=== PATIENT | male | born 1980 | race African-American/Black ===

== ENCOUNTER 2016-07-26 12:40 | Emergency (ER) | payer SELFPAY ==
--- NOTE | 2016-07-26 14:49 | ER Document Report ---
ED Medical Screen (RME) - General Chief Complaint: Chest Pain Stated Complaint: CHEST PAIN Time Seen by Provider: 07/26/16 14:36 Notes: Patient says has been experiencing anterior chest pain for a couple of weeks. He says the pain actually seems to start in the epigastric region and come upward and then to the right side of his chest, not the left. Originally, it would come and go, but now it has gotten to be almost constant. Not injured himself in any way. Has not fallen. Has not done any excessive heavy lifting or any injury. Denies nausea or vomiting or diarrhea, but says he had some blood in his stool yesterday and again today. Denies any fever. No URI symptoms or cough or cold or chest congestion or shortness of breath or difficulty breathing. History of hypertension, but never on medicines. Smokes. Drinks alcohol. TRAVEL OUTSIDE OF THE [place] IN LAST 30 DAYS: No - Related Data Allergies/Adverse Reactions: iodine [Iodine] Allergy (Intermediate, Verified 07/26/16 13:13) Hives Past Medical History - Past Medical History Cardiac Medical History: Reports: Hx Hypertension Renal/ Medical History: Denies: Hx Peritoneal Dialysis GI Medical History: Reports: Hx Gastroesophageal Reflux Disease Past Surgical History: Reports: Hx Oral Surgery - Immunizations Immunizations up to date: Yes Hx Diphtheria, Pertussis, Tetanus Vaccination: Yes Physical Exam - Vital signs Vitals: Temp Pulse Resp BP Pulse Ox 98.1 F 89 20 162/109 H 98 07/26/16 13:13 07/26/16 13:13 07/26/16 13:13 07/26/16 13:13 07/26/16 13:13 Course - Vital Signs Vital signs: Temp Pulse Resp BP Pulse Ox 98.1 F 90 20 162/109 H 98 07/26/16 13:15 07/26/16 13:15 07/26/16 13:15 07/26/16 13:15 07/26/16 13:15
[2016-07-26 15:18] LABS: ABSOLUTE BASOPHILS # (AUTO) 0.1 10^3/uL (0.0-0.2); ABSOLUTE EOSINOPHILS # (AUTO) 0.2 10^3/uL (0.0-0.6); ABSOLUTE LYMPHOCYTES (AUTO) 4.3 10^3/uL (0.5-4.7); ABSOLUTE MONOCYTES (AUTO) 0.7 10^3/uL (0.1-1.4); BASOPHILS % (AUTO) 1.3 % (0-2); EOSINOPHILS % (AUTO) 2.2 % (0-6); HEMATOCRIT 47.2 % (37.9-51.0); HEMOGLOBIN 15.6 g/dL (13.5-17.0); HGB HCT DIFFERENCE -0.4; LYMPHOCYTES % (AUTO) 37.6 % (13-45); MEAN CORPUSCULAR HEMOGLOBIN 29.6 pg (27.0-33.4); MEAN CORPUSCULAR HGB CONC 33.1 g/dL (32.0-36.0); MEAN CORPUSCULAR VOLUME 89 fl (80-97); MONOCYTES % (AUTO) 6.3 % (3-13); RED BLOOD COUNT 5.28 10^6/uL (4.35-5.55); RED CELL DISTRIBUTION WIDTH 13.7 % (11.5-14.0); SEGMENTED NEUTROPHILS % (AUTO) 52.6 % (42-78); WHITE BLOOD COUNT 11.4 10^3/uL (4.0-10.5)
[2016-07-26 15:23] LABS: APPEARANCE,URINE SLIGHTLY-CLOUDY; BILIRUBIN,URINE NEGATIVE (NEGATIVE); GLUCOSE, URINE NEGATIVE (NEGATIVE); KETONES,URINE NEGATIVE (NEGATIVE); LEUKOCYTE ESTERASE,URINE TRACE (NEGATIVE); NITRITE,URINE NEGATIVE (NEGATIVE); PROTEIN,URINE NEGATIVE (NEGATIVE); URINE SPECIFIC GRAVITY 1.027
[2016-07-26 15:37] LABS: ALANINE AMINOTRANSFERASE 71 U/L (21-72); ALBUMIN 4.4 g/dL (3.5-5.0); ALKALINE PHOSPHATASE 82 U/L (38-126); ANION GAP 10 (5-19); ASPARTATE AMINO TRANSFERASE 36 U/L (17-59); BILIRUBIN,DIRECT 0.4 mg/dL (0.0-0.4); BILIRUBIN,TOTAL 0.6 mg/dL (0.2-1.3); BLOOD UREA NITROGEN 11 mg/dL (7-20); CALCIUM 9.7 mg/dL (8.4-10.2); CARBON DIOXIDE 28 mmol/L (22-30); CHLORIDE 104 mmol/L (98-107); GLUCOSE 114 mg/dL (75-110); LIPASE 105.3 U/L (23-300); POTASSIUM 4.5 mmol/L (3.6-5.0); SODIUM 142.4 mmol/L (137-145); TOTAL PROTEIN 7.6 g/dL (6.3-8.2)
[2016-07-26 15:48] LABS: CREATINE KINASE MB 0.26 ng/mL (<4.55)
[2016-07-26 15:55] LABS: TROPONIN I < 0.012 ng/mL
[2016-07-26] MEDS ORDERED: ASPIRIN 81 MG TABLET, CHEWABLE PO ONE (16:05)
--- NOTE | 2016-07-26 16:55 | ER Document Report ---
ED General - General Chief Complaint: Chest Pain Stated Complaint: CHEST PAIN Time Seen by Provider: 07/26/16 14:36 Mode of Arrival: Ambulatory Information source: Patient Notes: Patient presents emergency department with reports of epigastric pain. Patient reports he had some epigastric pain that radiated to the right side approximately 3 weeks ago. He reports it went away and then came back radiating to the left side. Reports history of reflux. Started after he had beers with his friends and some fatty food. The patient did take camilo seltzer and had some relief of symptoms but it came right back. Patient denies chest pain, shortness of breath, fever, vomiting diarrhea. He reports he did feel a bit nauseated when he had the pain. Patient has history of high blood pressure untreated. Also smokes and is overweight. Reports family history of CAD. Denies trauma. TRAVEL OUTSIDE OF THE [place] IN LAST 30 DAYS: No - HPI Onset: Other - 3 weeks Quality of pain: Burning Pain Level: 4 Associated symptoms: Nausea Exacerbated by: Denies Relieved by: Denies Similar symptoms previously: No Recently seen / treated by doctor: No - Related Data Allergies/Adverse Reactions: iodine [Iodine] Allergy (Intermediate, Verified 07/26/16 13:13) Hives Past Medical History - General Information source: Patient - Social History Smoking Status: Current Every Day Smoker Cigarette use (# per day): Yes Chew tobacco use (# tins/day): No Frequency of alcohol use: Occasional Drug Abuse: None Occupation: none Lives with: Family Family History: Reviewed & Not Pertinent Patient has suicidal ideation: No Patient has homicidal ideation: No - Past Medical History Cardiac Medical History: Reports: Hx Hypertension Renal/ Medical History: Denies: Hx Peritoneal Dialysis GI Medical History: Reports: Hx Gastroesophageal Reflux Disease Past Surgical History: Reports: Hx Oral Surgery - Immunizations Immunizations up to date: Yes Hx Diphtheria, Pertussis, Tetanus Vaccination: Yes Review of Systems - Review of Systems Notes: Review HPI for review of systems., All other systems negative Physical Exam - Vital signs Vitals: Temp Pulse Resp BP Pulse Ox 98.1 F 89 20 162/109 H 98 07/26/16 13:13 07/26/16 13:13 07/26/16 13:13 07/26/16 13:13 07/26/16 13:13 - Notes Notes: PHYSICAL EXAMINATION: GENERAL: Well-appearing and in no acute distress laughs easily HEAD: Atraumatic, normocephalic. EYES: Pupils equal round and reactive to light, extraocular movements intact, sclera anicteric, conjunctiva are normal. ENT: nares patent, oropharynx clear without exudates. Moist mucous membranes. NECK: Normal range of motion, supple without lymphadenopathy LUNGS: CTAB and equal. No wheezes rales or rhonchi. HEART: Regular rate and rhythm without murmurs ABDOMEN: Soft, denies abdominal pain, denies epigastric tenderness. No guarding , no rebound reports pain is deep in his abdomen EXTREMITIES: Normal range of motion, no pitting edema. No cyanosis. NEUROLOGICAL: Cranial nerves grossly intact. Normal sensory/motor exams. PSYCH: Normal mood, normal affect. SKIN: Warm, Dry, normal turgor, no rashes or lesions noted Course - Re-evaluation Re-evalutation: 07/26/16 18:[address] ramsey per apc guidelines who advised second set of CE. 07/26/16 19:35 Denies pain. Reports he has not had any pain since 1400 07/26/16 19:56 SECOND SET OF Enzymes negative. Patient reports he never felt like he was having chest pain, more epigastric pain with history of GERD. It was updated on all results. Patient was instructed on GERD, Foods to avoid, dangers of high blood pressure, on modifying his diet QUIT smoking., monitor his blood pressure exercise. He reports he will be following up with the [facility]. - Vital Signs Vital signs: Temp Pulse Resp BP Pulse Ox 98.1 F 90 12 131/91 H 100 07/26/16 13:15 07/26/16 13:15 07/26/16 18:01 07/26/16 18:01 07/26/16 18:01 - Laboratory Result Diagrams: 07/26/16 14:55 07/26/16 14:55 Laboratory results interpreted by me: 07/26/16 07/26/16 07/26/16 14:55 14:55 14:55 WBC 11.4 H Glucose 114 H Urine Urobilinogen 2.0 H Ur Leukocyte Esterase TRACE H - Diagnostic Test Radiology reviewed: Image reviewed, Reports reviewed - neg - EKG Interpretation by Me EKG shows normal: Sinus rhythm - ekg x 2 Discharge - Discharge Clinical Impression: Epigastric abdominal pain, Elevated blood pressure reading Condition: Stable Disposition: HOME, SELF-CARE Instructions: Evaluation of Upper Abdominal Pain ([facility]), High Blood Pressure ( [facility]), Stop Smoking ([facility]), [facility] Additional Instructions: *You have been evaluated for epigastric abdominal pain *Quit smoking, monitor your blood pressure *Avoid greasy, spicy foods *Follow up with a primary care provider or the [facility] within one week *Return to ED for worsening condition, changes, needs, concerns, chest pain, SOB * Forms: Elevated Blood Pressure, Smoking Cessation Education
[2016-07-26] MEDS ORDERED: LIDOCAINE 2% VISCOUS SOLN 20 ML UDCUP PO ONE (17:26)
[2016-07-26] MEDS ORDERED: METOCLOPRAMIDE HCL ORAL SOLN 10 MG/10 ML UDCUP PO ONE (17:26)
[2016-07-26] MEDS ORDERED: MAG HYDROX/AL HYDROX/SIMETH SUSP 30 ML UDCUP PO ONE (17:26)
[2016-07-26 20:28] VITALS: BP 141/84
--- NOTE | 2016-07-27 07:11 | EKG REPORT ---
SEVERITY:- ABNORMAL ECG - SINUS RHYTHM CONSIDER ANTEROSEPTAL INFARCT : Confirmed by: Margie Pappas MD 27-Jul-2016 07:10:28
--- NOTE | 2016-07-27 07:11 | EKG REPORT ---
SEVERITY:- ABNORMAL ECG - SINUS RHYTHM CONSIDER ANTEROSEPTAL INFARCT : Confirmed by: Margie Pappas MD 27-Jul-2016 07:10:32
== END 2016-07-26 20:15 | disposition home or self-care (01) ==
LOC: ER 12:40
DX: K21.9 Gastro-esophageal reflux disease without esophagitis (principal); R10.13 Epigastric pain; R11.0 Nausea; I10 Essential (primary) hypertension; E66.3 Overweight; Z68.42 Body mass index [BMI] 45.0-49.9, adult; F17.210 Nicotine dependence, cigarettes, uncomplicated; Z82.49 Family history of ischemic heart disease and other diseases of the circulatory system
CPT/HCPCS: 93005; 99285; 36415; 82553; 83690; 85025; 80053; 81001; 84484; 71020; 93010; J3490

== ENCOUNTER 2017-10-21 13:15 | Emergency (ER) | payer SELFPAY ==
[2017-10-21 13:24] VITALS: BP 155/84
[2017-10-21] MEDS ORDERED: KETOROLAC TROMETHAMINE 60 MG/2 ML SDV IM ONE (14:50)
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
[2017-10-21 15:47] LABS: APPEARANCE,URINE CLEAR; BILIRUBIN,URINE NEGATIVE (NEGATIVE); COLOR,URINE YELLOW; GLUCOSE, URINE 50 mg/dL (NEGATIVE); KETONES,URINE NEGATIVE (NEGATIVE); LEUKOCYTE ESTERASE,URINE NEGATIVE (NEGATIVE); NITRITE,URINE NEGATIVE (NEGATIVE); PROTEIN,URINE NEGATIVE (NEGATIVE)
--- NOTE | 2017-10-21 16:48 | RADIOLOGY REPORT (SQ) ---
EXAM DESCRIPTION: U/S SCROTUM W/DOPPLER COMPLETED DATE/TIME: 10/21/2017 4:35 pm REASON FOR STUDY: r testicular pain COMPARISON: None. TECHNIQUE: Static and realtime giles scale imaging of the scrotum and testes. Selected color Doppler and spectral images recorded to document blood flow. LIMITATIONS: None. FINDINGS: RIGHT: TESTICLE: Normal size. Mild microlithiasis. Normal blood flow. No mass. EPIDIDYMIS: Normal. HYDROCELE OR VARICOCELE: No. HERNIA OR EXTRA-TESTICULAR MASS: No. OTHER: No other significant finding. LEFT: TESTICLE: Normal size. Mild microlithiasis. Normal blood flow. No mass. EPIDIDYMIS: Normal. HYDROCELE OR VARICOCELE: No. HERNIA OR EXTRA-TESTICULAR MASS: No. OTHER: No other significant finding. IMPRESSION: Mild microlithiasis. No evidence of testicular mass or torsion. TECHNICAL DOCUMENTATION: JOB ID: [id number] [employer]- All Rights Reserved Reading location - IP/workstation name: [email or web address]
[2017-10-21 17:15] LABS: CHLAM PCR NOT DETECTED (NOT DETECT); GON PCR NOT DETECTED (NOT DETECT)
== END 2017-10-21 17:37 | disposition home or self-care (01) ==
LOC: ER 13:15
DX: M54.40 Lumbago with sciatica, unspecified side (principal); N50.82 Scrotal pain; N50.811 Right testicular pain; I10 Essential (primary) hypertension; F17.200 Nicotine dependence, unspecified, uncomplicated
CPT/HCPCS: 99284; 96372; 81001; 87491; 87591; 76870; 93976; J1885

== ENCOUNTER 2018-04-05 14:17 | Emergency (ER) | payer SELFPAY ==
[2018-04-05] MEDS ORDERED: CYCLOBENZAPRINE HCL 10 MG TABLET PO ONE (15:49)
[2018-04-05] MEDS ORDERED: HYDROCODONE/ACETAMINOPHEN 5-325 MG TABLET PO ONE (15:49)
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
[2018-04-05 16:20] VITALS: BP 136/89
== END 2018-04-05 16:20 | disposition home or self-care (01) ==
LOC: ER 14:17
DX: M54.42 Lumbago with sciatica, left side (principal); I10 Essential (primary) hypertension; F17.200 Nicotine dependence, unspecified, uncomplicated
CPT/HCPCS: 99283

== ENCOUNTER 2018-07-19 12:50 | Emergency (ER) | payer SELFPAY ==
--- NOTE | 2018-07-19 13:10 | ER Document Report ---
ED Medical Screen (RME) - General Chief Complaint: Shortness Of Breath Stated Complaint: SHORTNESS OF BREATH Time Seen by Provider: 07/19/18 13:05 Mode of Arrival: Ambulatory Information source: Patient Notes: Patient is a 38-year-old male presenting to the emergency department with cough, congestion and shortness of breath. Patient reports initially he just had a cough and congestion but now he has been having fevers and having increased pain with deep breaths. Patient denies any history of pneumonia. Exam: Lung sounds clear and equal bilaterally I have greeted and performed a rapid initial assessment of this patient. A comprehensive ED assessment and evaluation of the patient, analysis of test results and completion of the medical decision making process will be conducted by additional ED providers. Dictation of this chart was performed using voice recognition software; therefore, there may be some unintended grammatical errors. TRAVEL OUTSIDE OF THE [place] IN LAST 30 DAYS: No - Related Data Allergies/Adverse Reactions: iodine [Iodine] Allergy (Intermediate, Verified 07/26/16 13:13) Hives Past Medical History - Past Medical History Cardiac Medical History: Reports: Hx Hypertension Renal/ Medical History: Denies: Hx Peritoneal Dialysis GI Medical History: Reports: Hx Gastroesophageal Reflux Disease Past Surgical History: Reports: Hx Oral Surgery - Immunizations Immunizations up to date: Yes Hx Diphtheria, Pertussis, Tetanus Vaccination: Yes Physical Exam - Vital signs Vitals: Temp Pulse Resp BP Pulse Ox 100.0 F 115 H 18 138/81 H 97 07/19/18 12:59 07/19/18 12:59 07/19/18 12:59 07/19/18 12:59 07/19/18 12:59 Course - Vital Signs Vital signs: Temp Pulse Resp BP Pulse Ox 100.0 F 115 H 18 138/81 H 97 07/19/18 12:59 07/19/18 12:59 07/19/18 12:59 07/19/18 12:59 07/19/18 12:59
--- NOTE | 2018-07-19 13:38 | RADIOLOGY REPORT (SQ) ---
EXAM DESCRIPTION: CHEST 2 VIEWS COMPLETED DATE/TIME: 07/19/2018 1:14 pm REASON FOR STUDY: sob, cough, fever COMPARISON: 2016. TECHNIQUE: Frontal and lateral radiographic views of the chest acquired. NUMBER OF VIEWS: Two view. LIMITATIONS: None. FINDINGS: LUNGS AND PLEURA: Mild opacity in the lingula. Given the patient's clinical presentation, probably developing pneumonia. MEDIASTINUM AND HILAR STRUCTURES: No masses or contour abnormalities. HEART AND VASCULAR STRUCTURES: Heart normal size. No evidence for failure. BONES: No acute findings. HARDWARE: None in the chest. OTHER: No other significant finding. IMPRESSION: Left upper lobe pneumonia. TECHNICAL DOCUMENTATION: JOB ID: [id number] [employer]- All Rights Reserved Reading location - IP/workstation name: [email or web address]
[2018-07-19] MEDS ORDERED: CEFTRIAXONE 1 GM/D5W RTU 1 GM/50 ML RTUPB IV ONE (13:54)
[2018-07-19] MEDS ORDERED: NORMAL SALINE 1000 ML 1,000 ML IV ONE (13:54)
[2018-07-19] MEDS ORDERED: AZITHROMYCIN INJ 500 MG VIAL IV ONE (13:54)
--- NOTE | 2018-07-19 13:55 | ER Document Report ---
ED General - General Chief Complaint: Shortness Of Breath Stated Complaint: SHORTNESS OF BREATH Time Seen by Provider: 07/19/18 13:05 Primary Care Provider: [facility] [Provider Group] - Follow up in 3-5 days DIDI LOWE MD [ACTIVE STAFF] - Follow up in 3-5 days Mode of Arrival: Ambulatory Notes: Patient is a 38-year-old male that presents to the emergency department for chief complaint of cough, shortness of breath and fever. Patient states that he has been having a cough and shortness of breath since , his cough has been productive with yellow sputum, it got worse Saturday night, is been having lower rib pain associated with the cough, but no pain at rest. He has had subjective fever at home as well and chills associated with this. He does smoke, but denies history of asthma or COPD. He denies having any lightheadedness, dizziness, nausea, vomiting or abdominal pain at this time. Past Medical History: Denies chronic medical conditions Past Surgical History: Denies surgical history Social History: Admits to smoking cigarettes, denies alcohol or drug use. Family History: Reviewed and noncontributory for presenting illness Allergies: Reviewed, see documented allergy list. REVIEW OF SYSTEMS: Other than noted above, the 12 point review of systems was reviewed with the patient and were negative, all pertinent findings are included in the HPI. PHYSICAL EXAMINATION: Vital signs reviewed, nursing noted reviewed. GENERAL: Well-appearing, well-nourished and in no acute distress. HEAD: Atraumatic, normocephalic. EYES: Eyes appear normal, extraocular movements intact, sclera anicteric, conjunctiva are normal. ENT: nares patent, oropharynx clear without exudates. Moist mucous membranes. NECK: Normal range of motion, supple without lymphadenopathy LUNGS: Bilateral wheezing noted throughout all lung trejo, no acute respiratory distress. Wet cough noted on exam. HEART: Heart rate tachycardic, regular rhythm, no audible murmur. ABDOMEN: Soft, obese, nontender, normoactive bowel sounds. No rebound, guarding, or rigidity. No masses appreciated. EXTREMITIES: Nontender, good range of motion, no pitting or edema. NEUROLOGICAL: No focal neurological deficits. Moves all extremities spontaneously Motor and sensory grossly intact on exam. PSYCH: Normal mood, normal affect. SKIN: Warm, Dry, normal turgor, no rashes or lesions noted on exposed skin TRAVEL OUTSIDE OF THE [place] IN LAST 30 DAYS: No - Related Data Allergies/Adverse Reactions: iodine [Iodine] Allergy (Intermediate, Verified 07/26/16 13:13) Hives Past Medical History - General Information source: Patient - Social History Smoking Status: Never Smoker Family History: Reviewed & Not Pertinent Patient has suicidal ideation: No Patient has homicidal ideation: No - Past Medical History Cardiac Medical History: Reports: Hx Hypertension Renal/ Medical History: Denies: Hx Peritoneal Dialysis GI Medical History: Reports: Hx Gastroesophageal Reflux Disease Past Surgical History: Reports: Hx Oral Surgery - Immunizations Immunizations up to date: Yes Hx Diphtheria, Pertussis, Tetanus Vaccination: Yes Physical Exam - Vital signs Vitals: Temp Pulse Resp BP Pulse Ox 100.0 F 115 H 18 138/81 H 97 07/19/18 12:59 07/19/18 12:59 07/19/18 12:59 07/19/18 12:59 07/19/18 12:59 Course - Re-evaluation Re-evalutation: Patient seen and examined vital signs reviewed. Chest x-ray ordered as appropriate for the patient's presenting symptoms and complaint, with consideration of any critical or life threatening conditions that may be associated with their obtained history and exam as noted above. Patient was treated with IV fluids, do not breathing treatments, and given a first dose of IV Rocephin and azithromycin. Results were reviewed when available and demonstrated chest x-ray concerning for pneumonia in the left lung. The patient was re-evaluated and was stable, and improved Evaluation was most consistent with community-acquired pneumonia, bronchospasm, will discharge the patient home with prescriptions for antibiotics as well as dispensing albuterol inhaler with instructions to use 4 times daily. Results were discussed with the patient at this point, after careful cons ideration I feel that that patient can be discharged from the emergency department, the patient was educated treatments and reasons to return to the emergency department based on their presumed diagnosis as noted above, they were advised to followup with a primary care physician in 2-3 days. Patient was agreeable to plan of care. *Note is created using voice recognition software and may contain spelling, syntax or grammatical errors. Chest X-Ray 07/19/18 13:09 IMPRESSION: Left upper lobe pneumonia. - Vital Signs Vital signs: Temp Pulse Resp BP Pulse Ox 100.0 F 110 H 16 141/82 H 96 07/19/18 12:59 07/19/18 14:16 07/19/18 14:16 07/19/18 14:16 07/19/18 14:16 Discharge - Discharge Clinical Impression: Bronchospasm Community acquired pneumonia Qualifiers: Laterality: left Lung location: unspecified part of lung Qualified Code(s): J18.9 - Pneumonia, unspecified organism Condition: Stable Disposition: HOME, SELF-CARE Instructions: Pneumonia ([facility]) Additional Instructions: Please complete the entire course of antibiotics as prescribed, take both antibiotics as prescribed and finish to complete courses. Please follow-up with a primary care physician, if you do not have one, to have been listed with your discharge paperwork, please use the albuterol inhaler, 2 puffs at least 4 times daily for the next 5 days, to help with cough, and your breathing. Prescriptions: Azithromycin [Zithromax 250 mg Tablet] 250 mg PO ASDIR #6 tablet Cefdinir 300 mg PO BID #14 capsule Referrals: DIDI LOWE MD [ACTIVE STAFF] - Follow up in 3-5 days [facility] [Provider Group] - Follow up in 3-5 days
[2018-07-19] MEDS ORDERED: IPRATROPIUM/ALBUTEROL 0.5-2.5 MG/3 ML AMPUL NEB ONE (13:59)
[2018-07-19] MEDS ORDERED: ALBUTEROL SULFATE HFA (90 MCG/PUFF) 8 GM MDI (1 MDI/ER DISP) IH ONE (15:18)
[2018-07-19 16:39] VITALS: BP 141/84
== END 2018-07-19 16:39 | disposition home or self-care (01) ==
LOC: ER 12:50
DX: J18.9 Pneumonia, unspecified organism (principal); J98.01 Acute bronchospasm; R06.02 Shortness of breath; R05 Cough; R50.9 Fever, unspecified; F17.210 Nicotine dependence, cigarettes, uncomplicated; I10 Essential (primary) hypertension
CPT/HCPCS: 94640; 99283; 96365; 96367; 71046; J7030; J0456; J0696; J3490; J7620

== ENCOUNTER 2018-07-21 22:36 | Emergency (ER) | payer SELFPAY ==
[2018-07-21] MEDS ORDERED: PREDNISONE 20 MG TABLET PO ONE (22:56)
[2018-07-21] MEDS ORDERED: DOXYCYCLINE HYCLATE 100 MG TABLET PO ONE (22:57)
[2018-07-21] MEDS ORDERED: IPRATROPIUM/ALBUTEROL 0.5-2.5 MG/3 ML AMPUL NEB ONE (22:57)
--- NOTE | 2018-07-21 23:38 | RADIOLOGY REPORT (SQ) ---
EXAM DESCRIPTION: XR CHEST 2 VIEWS COMPLETED DATE/TME: 07/21/2018 22:57 EXAM DESCRIPTION: 2 views of the chest CLINICAL HISTORY: cough COMPARISON: 07/19/2018 FINDINGS: Frontal and lateral views of the chest. The cardiomediastinal silhouette has normal size and contour. No consolidation, pneumothorax, or pleural effusion. No displaced rib fractures identified. Upper abdominal soft tissues are unremarkable. IMPRESSION: 1. No acute pulmonary process identified. Improved aeration of the left upper lung from the comparison study.
[2018-07-22] MEDS ORDERED: ALBUTEROL SULFATE 0.083% NEB 2.5 MG/3 ML AMPUL NEB ONE (00:27)
[2018-07-22] MEDS ORDERED: DEXAMETHASONE SOD PHOS INJ 10 MG/1 ML VIAL IM ONE (02:04)
[2018-07-22] MEDS ORDERED: METFORMIN HCL 500 MG TABLET PO ONE (02:04)
--- NOTE | 2018-07-22 02:07 | ER Document Report ---
ED General - General Chief Complaint: Near Syncope Stated Complaint: NEAR SYNCOPE Time Seen by Provider: 07/21/18 22:49 Notes: Is having some worsening difficulty breathing wheezing and felt as if he was going to pass out. He says some this is also triggered by the fact he is under a lot of stress. He says his mother is also here in the ER and this is got him upset and stressed as well. No chest pain. No fevers. No vomiting. He was re cently seen in the ER and placed on an antibiotic because of pneumonia. Patient says he does not have the money to fill the prescription for the pneumonia. He is a smoker. TRAVEL OUTSIDE OF THE [place] IN LAST 30 DAYS: No - Related Data Allergies/Adverse Reactions: iodine [Iodine] Allergy (Intermediate, Verified 07/26/16 13:13) Hives Past Medical History - Social History Smoking Status: Current Every Day Smoker Frequency of alcohol use: Occasional Drug Abuse: None Family History: Reviewed & Not Pertinent Patient has suicidal ideation: No Patient has homicidal ideation: No - Past Medical History Cardiac Medical History: Reports: Hx Hypertension Pulmonary Medical History: Reports: Hx Pneumonia Renal/ Medical History: Denies: Hx Peritoneal Dialysis GI Medical History: Reports: Hx Gastroesophageal Reflux Disease Past Surgical History: Reports: Hx Oral Surgery - Immunizations Immunizations up to date: Yes Hx Diphtheria, Pertussis, Tetanus Vaccination: Yes Review of Systems - Review of Systems Notes: My Normal Review Basic REVIEW OF SYSTEMS: CONSTITUTIONAL : Subjective fevers EENT: Denies eye, ear, throat, or mouth pain or symptoms. Denies nasal or s inus congestion. CARDIOVASCULAR: Denies chest pain. RESPIRATORY: Cough GASTROINTESTINAL: Denies abdominal pain. Denies nausea, vomiting, or diarrhea. Denies constipation. Last BM: MUSCULOSKELETAL: Denies neck or back pain or joint pain or swelling. SKIN: Denies rash or skin lesions. NEUROLOGICAL: Denies altered mental status or loss of consciousness. ALL OTHER SYSTEMS REVIEWED AND NEGATIVE. Physical Exam - Vital signs Vitals: Temp 98.2 F 07/21/18 23:18 - Notes Notes: General Appearance: Well nourished, alert, cooperative, no acute distress, no obvious discomfort. Vitals: reviewed, See vital signs table. Head: no swelling or tenderness to the head Eyes: PERRL, EOMI, Conjuctiva clear Mouth: No decreasd moisture Throat: No tonsillar inflammation, No airway obstruction, No lymphadenopathy Lungs: Scattered rhonchi and wheezing. Heart: Normal rate, Regular rythm, No murmur, no rub Abdomen: Normal BS, soft, No rigidity, No abdominal tenderness, No guarding, no rebound Extremities: good pulses in all extremities, no swelling or tenderness in the extremities, no edema. Skin: warm, dry, appropriate color, no rash Neuro: speech clear, oriented x 3, normal affect, responds appropriately to questions. Cranial nerves II through XII are intact. Distal sensation intact. Patient moves all extremities without difficulty. Distal sensation intact. Course - Re-evaluation Re-evalutation: 07/22/18 02:10 Patient is feeling much improved after receiving the breathing treatments his lung trejo are now clear. Wheezing is gone. Chest x-ray showed no evidence of pneumonia and therefore informed him he does not have to fill the antibiotic prescription from several days ago. He has what appears to be a bronchitis. Did give him a dose of Decadron. Blood sugar is a little bit high. He supposed to see for the first time this week and goes to medical clinic. We will place him on metformin but informed him that I still to check his kidney function. Patient is ready to leave and therefore I will follow-up on the results of his chemistry panel and call him to inform him whether or not his kidney function is normal not. I informed him that his kidney function is not normal then I will make sure he does not feel that prescription for metformin and will talk about otherwise to control his blood sugar. Patient to return to ER if he has fevers, difficulty breathing, wheezing not responding to inhaler, or if he feels he is worsening in any way. Patient agrees with plan and will be discharged home. Dictation of this chart was performed using voice recognition software; the[employer], there may be some unintended grammatical errors. 07/22/18 05:30 I did call and inform patient his kidney function was normal and therefore he should fill the prescription for metformin. Patient is agreeable plan. Dictation of this chart was performed using voice recognition software; [employer], there may be some unintended grammatical errors. - Vital Signs Vital signs: Temp Pulse Resp BP Pulse Ox 98.4 F 102 H 18 148/105 H 97 07/22/18 02:32 07/22/18 02:32 07/22/18 02:32 07/22/18 02:32 07/22/18 02:32 - Laboratory Result Diagrams: 07/22/18 02:10 Laboratory results interpreted by me: 07/22/18 07/22/18 01:50 02:10 Glucose 231 H POC Glucose 210 H Discharge - Discharge Clinical Impression: Hyperglycemia Acute bronchitis Qualifiers: Bronchitis organism: unspecified organism Qualified Code(s): J20.9 - Acute bronchitis, unspecified Condition: Good Disposition: HOME, SELF-CARE Additional Instructions: BRONCHITIS WITH BRONCHOSPASM (WHEEZING): You have bronchitis with bronchospasm (wheezing). Sometimes people develop wheezing with a chest cold. This occurs either because of an underlying tendency toward asthma or because the virus itself irritates the bronchial tubes. This irritation causes cough, shortness of breath, and wheezing. Emergency treatment of bronchospasm may include adrenaline shots or bronchodilator aerosol. You may feel lightheaded and have a rapid pulse for an hour or two. Rest and get plenty of fluids. At home, we'll treat you with a bronchodilator inhaler. Corticosteroids may be required for some patients. Until you recover, avoid chemical fumes, dusts, pollens, and exercising in very cold or dry air. If you smoke, stop now! Most cases of bronchitis get better without antibiotics. We prescribe antibiotics when we believe bacteria are damaging your airways, or if there's high risk the bronchitis will worsen into pneumonia. Increase your fluid intake. A cool mist humidifier may make your lungs more comfortable. An expectorant (cough medicine that loosens phlegm) can help. Repeated episodes of bronchitis and bronchospasm may result in lung damage -- for example, chronic bronchitis, recurrent pneumonias, or emphysema. If you develop a fever, increased wheezing, chest pain, or severe shortness of breath, you should contact the doctor immediately. INHALED BRONCHODILATORS: You have received a treatment of and/or prescription for an inhaled bronchodilator -- a medication which stimulates the airways in the lung to dilate. This improves the flow of air in asthma, bronchitis, and emphysema. These medicines have some similarity to adrenaline, and can cause similar side effects: shakiness, racing heart, and a sense of nervousness. These side effects decrease with time. Contact your doctor if these side effects are sever e. Do not over-use the medicine. Too-frequent use of the inhaler may make it ineffective. Call your doctor if the inhaler is not controlling your symptoms at the prescribed doses. STEROID MEDICATION: You have been given an injection of a medicine of the cortisone/steroid class. This medication is used to control inflammation or allergy. [place] t is usually only given for a short period of time, until the acute process subsides. There are usually no side effects from short-term use of cortisone-like medications. Some persons feel an increased sense of well-being and are not s leepy at bedtime. Long-term use of cortisone medications is best avoided, unless required for a severe condition. If your condition does not remit, or relapses after the course of corticosteroid medication, you should consult your physician. SMOKING: If you smoke, you should stop smoking. The tar and chemicals in cigarette smoke are harmful. Smoking has been shown to cause: emphysema chronic bronchitis lung cancer mouth and throat cancer stomach and pancreas cancer premature aging defects In addition, smoking increases ear and lung infections in children of smokers. FOLLOW-UP CARE: If you have been referred to a physician for follow-up care, call the physicians office for an appointment as you were instructed or within the next two days. If you experience worsening or a significant change in your symptoms, notify the physician immediately or return to the Emergency Department at any time for re-evaluation. I prescribed you a medicine for your high blood sugar. This medicine is called metformin. You cannot take metformin on a regular basis is if your kidney function is off. I therefore have ordered blood testing looking at your kidney function. I will call you with your results this morning to make you aware of your kidney function and whether or not you can go ahead and fill the prescription for the metformin. Please use inhaler as 2 puffs every 4 hours as needed for wheezing. Please quit smoking. Please return to ER if you have recurrent difficulty breathing, wheezing not responding to inhaler, fevers, or feel that you are worsening in any way. [facility] already scheduled. Prescriptions: Metformin HCl [Glucophage 500 mg Tablet] 500 mg PO BID #30 tablet Forms: Return to Work
[2018-07-22 02:39] VITALS: BP 148/105
[2018-07-22 02:41] LABS: ANION GAP 14 (5-19); BLOOD UREA NITROGEN 7 mg/dL (7-20); CALCIUM 9.2 mg/dL (8.4-10.2); CARBON DIOXIDE 22 mmol/L (22-30); CHLORIDE 105 mmol/L (98-107); GLUCOSE 231 mg/dL (75-110); POTASSIUM 4.1 mmol/L (3.6-5.0); SODIUM 140.8 mmol/L (137-145)
== END 2018-07-22 02:40 | disposition home or self-care (01) ==
LOC: ER 22:36
DX: J20.9 Acute bronchitis, unspecified (principal); R73.9 Hyperglycemia, unspecified; I10 Essential (primary) hypertension; F17.200 Nicotine dependence, unspecified, uncomplicated; R05 Cough; R06.2 Wheezing
CPT/HCPCS: 94640 ×2; 99284; 96372; 36415; 82962; 80048; 71046; J7512; J1100; J7620

== ENCOUNTER 2018-11-17 09:50 | Emergency (ER) | payer SELFPAY ==
[2018-11-17 10:12] VITALS: BP 139/80
[2018-11-17] MEDS ORDERED: OXYCODONE-ACETAMINOPHEN 5-325 MG TABLET PO ONE (11:56)
[2018-11-17] MEDS ORDERED: CYCLOBENZAPRINE HCL 10 MG TABLET PO ONE (11:57)
[2018-11-17] MEDS ORDERED: LIDOCAINE 5% (700 MG) TRANSDERMAL ADH..PATCH TP ONE (11:57)
--- NOTE | 2018-11-17 11:59 | ER Document Report ---
HPI - HPI Patient complains to provider of: back pain Time Seen by Provider: 11/17/18 11:42 Onset: Last week Onset/Duration: Persistent Quality of pain: Achy Pain Level: 4 Context: Patient presents complaining of back pain to the left lower back area that radiates into the buttock. Patient states that pain is been present for the past week but worsened over the past 2 days. Patient denies any injury. Patient denies any fever urinary retention or incontinence. Patient does have a history of sciatica. Associated Symptoms: Other - Low back pain, left buttock pain. denies: Fever, Headache Exacerbated by: Standing, Movement, Walking Relieved by: Denies Similar symptoms previously: Yes Recently seen / treated by doctor: No - ROS ROS below otherwise negative: Yes Systems Reviewed and Negative: Yes All other systems reviewed and negative - CONSTITUTIONAL Constitutional: DENIES: Fever, Chills - NEURO Neurology: DENIES: Weakness - GASTROINTESTINAL Gastrointestinal: DENIES: Nausea - URINARY Urinary: DENIES: Dysuria, Urgency, Frequency - MUSCULOSKELETAL Musculoskeletal: REPORTS: Back Pain - DERM Skin Color: Normal Skin Problems: None Past Medical History - General Information source: Patient - Social History Smoking Status: Current Every Day Smoker Smoking Education Provided: Yes Frequency of alcohol use: None Drug Abuse: None Occupation: Foodservice Lives with: Spouse/Significant other Family History: Reviewed & Not Pertinent Patient has suicidal ideation: No Patient has homicidal ideation: No Pulmonary Medical History: Reports: Hx Pneumonia Renal/ Medical History: Denies: Hx Peritoneal Dialysis GI Medical History: Reports: Hx Gastroesophageal Reflux Disease Musculoskeletal Medical History: Reports Other - Sciatica Past Surgical History: Reports: Hx Oral Surgery - Immunizations Immunizations up to date: Yes Hx Diphtheria, Pertussis, Tetanus Vaccination: Yes Vertical Provider Document - CONSTITUTIONAL Agree With Documented VS: Yes Exam Limitations: No Limitations General Appearance: WD/WN, No Apparent Distress, Other - Morbidly obese - INFECTION CONTROL TRAVEL OUTSIDE OF THE [place] IN LAST 30 DAYS: No - HEENT HEENT: Atraumatic, Normocephalic - NECK Neck: Normal Inspection, Supple - RESPIRATORY Respiratory: Breath Sounds Normal, No Respiratory Distress - CARDIOVASCULAR Cardiovascular: Regular Rate, Regular Rhythm - BACK Back: Abnormal Inspection - Left SI joint tenderness. negative: CVA Tenderness- Right, CVA Tenderness-Left Notes: No spinal midline tenderness step-off or deformity - MUSCULOSKELETAL/EXTREMETIES Musculoskeletal/Extremeties: MAEW, FROM, Non-Tender - NEURO Level of Consciousness: Awake, Alert, Appropriate Motor/Sensory: No Motor Deficit, No Sensory Deficit Notes: No saddle anesthesia, no foot drop, normal gait - DERM Integumentary: Warm, Dry, No Rash Course - Re-evaluation Re-evalutation: 11/17/18 11:56 The patient presents with low back pain without signs of spinal cord compression, cauda equina syndrome, infection, aneurysm, or other serious etiology. The patient is neurologically intact. Given the extremely risk of these diagnoses further testing and evaluation for these possibilities does not appear to be indicated at this time. Patient has been instructed to return if the symptoms worsen or change in any way. - Vital Signs Vital signs: Temp Pulse Resp BP Pulse Ox 98.8 F 87 20 139/80 H 97 11/17/18 10:11 11/17/18 10:11 11/17/18 10:11 11/17/18 10:11 11/17/18 10:11 Discharge - Discharge Clinical Impression: Sciatica Qualifiers: Laterality: left Qualified Code(s): M54.32 - Sciatica, left side Condition: Stable Disposition: HOME, SELF-CARE Instructions: Ice Packs ([facility]), Oral Narcotic Medication ([facility]), Sciatica ([facility]) Additional Instructions: Return immediately for any new or worsening symptoms Followup with your primary care provider, call tomorrow to make a followup appointment Follow-up with orthopedics and pain management for further evaluation of your chronic back pain Prescriptions: Cyclobenzaprine HCl [Flexeril 10 Mg Tablet] 10 mg PO TID #15 tablet Lidocaine [Lidoderm 5% (700 mg) Transdermal Patch] 1 patch TP DAILY PRN #10 adh..patch PRN Reason: Naproxen [Naprosyn 250 Nmg Tablet] 1 tab PO BID #14 tablet Oxycodone HCl/Acetaminophen [Percocet 5-325 mg Tablet] 1 tab PO ASDIR PRN #12 tablet PRN Reason: Forms: Smoking Cessation Education, Return to Work Referrals: [facility] [Provider Group] - Follow up as needed [facility] [Provider Group] - Follow up as needed [facility] [Provider Group] - Follow up as needed [facility] [Provider Group] - Follow up as needed
== END 2018-11-17 12:08 | disposition home or self-care (01) ==
LOC: ER 09:50
DX: M54.32 Sciatica, left side (principal); F17.200 Nicotine dependence, unspecified, uncomplicated
CPT/HCPCS: 99283

== ENCOUNTER → 2019-01-15 | Outpatient (CLI) | payer OTHER ==
[2019-01-15 14:35] LABS: APPEARANCE,URINE SLIGHTLY-CLOUDY; BILIRUBIN,URINE NEGATIVE (NEGATIVE); COLOR,URINE YELLOW; GLUCOSE, URINE 50 mg/dL (NEGATIVE); KETONES,URINE NEGATIVE (NEGATIVE); LEUKOCYTE ESTERASE,URINE NEGATIVE (NEGATIVE); NITRITE,URINE NEGATIVE (NEGATIVE); PROTEIN,URINE NEGATIVE (NEGATIVE); URINE SPECIFIC GRAVITY 1.026; UROBILINOGEN,URINE NEGATIVE mg/dL (<2.0)
[2019-01-15 14:38] LABS: ABSOLUTE BASOPHILS # (AUTO) 0.1 10^3/uL (0.0-0.2); ABSOLUTE EOSINOPHILS # (AUTO) 0.2 10^3/uL (0.0-0.6); ABSOLUTE LYMPHOCYTES (AUTO) 3.5 10^3/uL (0.5-4.7); ABSOLUTE MONOCYTES (AUTO) 0.4 10^3/uL (0.1-1.4); ABSOLUTE NEUT (AUTO) 4.6 10^3/uL (1.7-8.2); HEMATOCRIT 42.4 % (37.9-51.0); HEMOGLOBIN 14.7 g/dL (13.5-17.0); LYMPHOCYTES % (AUTO) 39.9 % (13-45); MEAN CORPUSCULAR HEMOGLOBIN 29.9 pg (27.0-33.4); MEAN CORPUSCULAR HGB CONC 34.8 g/dL (32.0-36.0); MEAN CORPUSCULAR VOLUME 86 fl (80-97); MONOCYTES % (AUTO) 4.6 % (3-13); PLATELET COUNT 280 10^3/uL (150-450); RED BLOOD COUNT 4.93 10^6/uL (4.35-5.55); RED CELL DISTRIBUTION WIDTH 13.4 % (11.5-14.0); SEGMENTED NEUTROPHILS % (AUTO) 52.5 % (42-78); TOTAL CELLS COUNTED % (AUTO) 100 %; WHITE BLOOD COUNT 8.9 10^3/uL (4.0-10.5)
[2019-01-15 15:23] LABS: ALBUMIN 4.3 g/dL (3.5-5.0); ALKALINE PHOSPHATASE 79 U/L (38-126); ANION GAP 12 (5-19); ASPARTATE AMINO TRANSFERASE 26 U/L (17-59); BILIRUBIN,DIRECT 0.2 mg/dL (0.0-0.4); BILIRUBIN,TOTAL 0.5 mg/dL (0.2-1.3); BLOOD UREA NITROGEN 11 mg/dL (7-20); CALCIUM 9.4 mg/dL (8.4-10.2); CARBON DIOXIDE 22 mmol/L (22-30); CHLORIDE 107 mmol/L (98-107); GLUCOSE 258 mg/dL (75-110); POTASSIUM 4.2 mmol/L (3.6-5.0); TOTAL PROTEIN 7.3 g/dL (6.3-8.2)
== END ==
LOC: CCC 13:02
DX: Z00.00 Encounter for general adult medical examination without abnormal findings (principal); M54.40 Lumbago with sciatica, unspecified side
CPT/HCPCS: 36415; 80053; 81001; 83036; 84443; 85025

== ENCOUNTER → 2019-04-29 | Outpatient (CLI) | payer OTHER ==
--- NOTE | 2019-04-29 13:57 | RADIOLOGY REPORT (SQ) ---
EXAM DESCRIPTION: LUMBAR SPINE W/FLEX/EXT COMPLETED DATE/TIME: 04/29/2019 1:49 pm REASON FOR STUDY: LOW BACK PAIN R73.9 HYPERGLYCEMIA, UNSPECIFIED M54.5 LOW BACK PAIN COMPARISON: None. NUMBER OF VIEWS: Seven views. TECHNIQUE: AP, lateral, obliques, flexion, extension, and sacral radiographic images acquired. LIMITATIONS: None. FINDINGS: MINERALIZATION: Normal. SEGMENTATION: Normal. No transitional anatomy. ALIGNMENT: Normal. FLEXION/EXTENSION: No instability. VERTEBRAE: Maintained height. No fracture or worrisome bone lesion. DISCS: Preserved height. No significant osteophytes or end plate irregularity. POSTERIOR ELEMENTS: Pedicles and facets are intact. No pars defect or posterior arch defects. HARDWARE: None in the spine. PARASPINAL SOFT TISSUES: Normal. PELVIS: Intact as visualized. No fractures or worrisome bone lesions. SI joints intact. OTHER: No other significant finding. IMPRESSION: NO SIGNIFICANT FINDING ON 7 VIEW SPINE SERIES. NO INSTABILITY ON FLEXION/EXTENSION. TECHNICAL DOCUMENTATION: JOB ID: [id number] 2010 [employer]- All Rights Reserved Reading location - IP/workstation name: [email or web address]
[2019-04-29 14:16] LABS: ABSOLUTE BASOPHILS # (AUTO) 0.1 10^3/uL (0.0-0.2); ABSOLUTE EOSINOPHILS # (AUTO) 0.2 10^3/uL (0.0-0.6); ABSOLUTE LYMPHOCYTES (AUTO) 3.6 10^3/uL (0.5-4.7); ABSOLUTE MONOCYTES (AUTO) 0.4 10^3/uL (0.1-1.4); ABSOLUTE NEUT (AUTO) 3.5 10^3/uL (1.7-8.2); BASOPHILS % (AUTO) 1.1 % (0-2); EOSINOPHILS % (AUTO) 2.1 % (0-6); HEMATOCRIT 45.9 % (37.9-51.0); LYMPHOCYTES % (AUTO) 46.7 % (13-45); MEAN CORPUSCULAR HEMOGLOBIN 29.5 pg (27.0-33.4); MEAN CORPUSCULAR HGB CONC 34.9 g/dL (32.0-36.0); MEAN CORPUSCULAR VOLUME 85 fl (80-97); MONOCYTES % (AUTO) 5.3 % (3-13); PLATELET COUNT 279 10^3/uL (150-450); RED BLOOD COUNT 5.43 10^6/uL (4.35-5.55); RED CELL DISTRIBUTION WIDTH 13.1 % (11.5-14.0); SEGMENTED NEUTROPHILS % (AUTO) 44.8 % (42-78); TOTAL CELLS COUNTED % (AUTO) 100 %; WHITE BLOOD COUNT 7.7 10^3/uL (4.0-10.5)
[2019-04-29 14:33] LABS: ALBUMIN 4.4 g/dL (3.5-5.0); ALKALINE PHOSPHATASE 74 U/L (38-126); ANION GAP 10 (5-19); ASPARTATE AMINO TRANSFERASE 27 U/L (17-59); BILIRUBIN,DIRECT 0.3 mg/dL (0.0-0.4); BILIRUBIN,TOTAL 0.5 mg/dL (0.2-1.3); BLOOD UREA NITROGEN 14 mg/dL (7-20); CALCIUM 9.9 mg/dL (8.4-10.2); CARBON DIOXIDE 27 mmol/L (22-30); CHLORIDE 101 mmol/L (98-107); CHOLESTEROL 286.24 mg/dL (0-200); GLUCOSE 184 mg/dL (75-110); POTASSIUM 4.4 mmol/L (3.6-5.0); TOTAL PROTEIN 7.7 g/dL (6.3-8.2); TRIGLYCERIDES 296 mg/dL (<150)
[2019-04-29 14:44] LABS: DIRECT LDL 195 mg/dL (<100)
[2019-04-29 14:48] LABS: VLDL CHOLESTEROL 59.2 mg/dL (10-31)
== END ==
LOC: CCC 13:16
DX: R73.9 Hyperglycemia, unspecified (principal); M54.5 Low back pain
CPT/HCPCS: 36415; 72114; 80053; 80061; 83036; 84443; 85025

== ENCOUNTER 2019-08-02 13:27 | Emergency (ER) | payer SELFPAY ==
[2019-08-02 13:38] VITALS: BP 182/106
[2019-08-02] MEDS ORDERED: PENICILLIN V POTASSIUM 500 MG TABLET PO ONE (13:53)
[2019-08-02] MEDS ORDERED: HYDROCODONE/ACETAMINOPHEN 5-325 MG (6 TAB/ER DISP) PO PRN (13:56)
--- NOTE | 2019-08-02 13:57 | ER Document Report ---
HPI - HPI Patient complains to provider of: Dental pain Time Seen by Provider: 08/02/19 13:51 Onset: Other - 3 days Onset/Duration: Persistent Pain Level: 1 Context: 39-year-old male presents emergency department with complaints of frontal dental pain for the past 3 days. He reports he woke up with the right side of his face swelling this morning. Denies trauma. Reports he has been taking ibuprofen that was prescribed by the [facility] for him but is not helping the pain. Reports increased pain with chewing smoking. Denies fever vomiting diarrhea. Patient does not have insurance he will plan on following up with the [facility]. Associated Symptoms: None Exacerbated by: Food Relieved by: Denies Similar symptoms previously: No Recently seen / treated by doctor: No Past Medical History - General Information source: Patient - Social History Smoking Status: Current Every Day Smoker Chew tobacco use (# tins/day): No Frequency of alcohol use: Social Drug Abuse: None Family History: Reviewed & Not Pertinent Patient has suicidal ideation: No Patient has homicidal ideation: No - Past Medical History Cardiac Medical History: Reports: Hx Hypertension Pulmonary Medical History: Reports: Hx Pneumonia Renal/ Medical History: Denies: Hx Peritoneal Dialysis GI Medical History: Reports: Hx Gastroesophageal Reflux Disease Past Surgical History: Reports: Hx Oral Surgery - Immunizations Immunizations up to date: Yes Hx Diphtheria, Pertussis, Tetanus Vaccination: Yes Vertical Provider Document - CONSTITUTIONAL Agree With Documented VS: Yes Exam Limitations: No Limitations General Appearance: WD/WN, No Apparent Distress - INFECTION CONTROL TRAVEL OUTSIDE OF THE [place] IN LAST 30 DAYS: No - HEENT HEENT: Atraumatic, Normocephalic Mouth Diagram: 1 - Dental decay noted. Erythema swelling on #8 gumline. Opens mouth wide clear voice good airway no trismus no Nile - NECK Neck: Normal Inspection, Supple. negative: Lymphadenopathy-Left, Lymphadenopathy-Right - RESPIRATORY Respiratory: Breath Sounds Normal, No Respiratory Distress - CARDIOVASCULAR Cardiovascular: Regular Rate - MUSCULOSKELETAL/EXTREMETIES Musculoskeletal/Extremeties: SUSANNAH JOHNSON - NEURO Level of Consciousness: Awake, Alert, Appropriate Motor/Sensory: No Motor Deficit - DERM Integumentary: Warm, Dry Adult Front & Back Diagram: 1 - Some facial swelling noted. Patient opens mouth wide good airway Course - Re-evaluation Re-evalutation: 08/02/19 14:04 39-year-old male presents with frontal dental pain with some facial swelling. Patient has good airway clear voice. Patient was instructed on Pen-Vee K. He has been taking ibuprofen without relief of symptoms. He was also prescribed some Crook. Patient was instructed [facility]. He was also instructed to return to the emergency department for worsening swelling concerns unable to swallow. He verbalized understanding. - Vital Signs Vital signs: Temp Pulse Resp BP Pulse Ox 99 F 87 16 182/106 H 98 08/02/19 13:50 08/02/19 13:36 08/02/19 13:36 08/02/19 13:36 08/02/19 13:36 Discharge - Discharge Clinical Impression: Pain, dental, Dental abscess Condition: Stable Disposition: HOME, SELF-CARE Instructions: [facility], Dentist, Dental Infection or Abscess ([facility]), Use of Evtz-Jop-Merevmk Ibuprofen ([facility]), Oral Narcotic Medication ([facility]), Penicillin V K ([facility]), Toothache ([facility]) Additional Instructions: *You have been evaluated for dental pain, abscess *Take Pen-Vee K, antibiotic, as prescribed. Take ibuprofen as indicated for pain -take Crook for the acute pain *Follow up with dentist as soon as possible *Return to emergency department for worsening condition, concerns, needs, incre ased swelling unable to swallow. Monitor your blood pressure. Your blood pressure was elevated today. This may be because you were anxious, in pain or because you need medication. It is important to follow up with your primary care provider for full evaluation. Prescriptions: Penicillin V Potassium [Penicillin Vk 500 mg Tablet] 500 mg PO BID #20 tablet [facility] [NO LOCAL MD] - Follow up in 3-5 days
== END 2019-08-02 14:06 | disposition home or self-care (01) ==
LOC: ER 13:27
DX: K04.7 Periapical abscess without sinus (principal); K08.89 Other specified disorders of teeth and supporting structures; R22.0 Localized swelling, mass and lump, head; F17.200 Nicotine dependence, unspecified, uncomplicated; I10 Essential (primary) hypertension
CPT/HCPCS: 99282

== ENCOUNTER 2019-12-25 11:59 | Emergency (ER) | payer SELFPAY ==
[2019-12-25 12:09] VITALS: BP 151/90
--- NOTE | 2019-12-25 12:38 | ER Document Report ---
ED Medical Screen (RME) - General Chief Complaint: Low Back Pain Stated Complaint: LOW BACK PAIN Time Seen by Provider: 12/25/19 12:31 Mode of Arrival: Wheelchair Information source: Patient Notes: 39-year-old male presented to ED for complaint of low back pain times a year he said got worse 6 months ago and even worse about 3 days ago. He states that last night he had a fever and his gave him some Tylenol Motrin. He states he was going to the [facility] but that is closed due to COVID. He states they were condescending to [place] but he has not been able to go now due to this pandemic. He is alert oriented respirations regular nonlabored speaking in full sentences. He denies any signs or symptoms of cauda equina. He denies any loss of sensation to his lower extremities. He states he does sometimes have some numbness and tingling in his feet. He denies any saddle anesthesia. He denies any loss of control of bowel bladder. I have greeted and performed a rapid initial assessment of this patient. A comprehensive ED assessment and evaluation of the patient, analysis of test results and completion of medical decision making process will be conducted by an additional ED providers. TRAVEL OUTSIDE OF THE [place] IN LAST 30 DAYS: No - Related Data Allergies/Adverse Reactions: iodine [Iodine] Allergy (Intermediate, Verified 08/02/19 13:49) Hives Home Medications: Metoprolol Past Medical History - Social History Frequency of alcohol use: Occasional Drug Abuse: Marijuana - Past Medical History Cardiac Medical History: Reports: Hx Hypertension Pulmonary Medical History: Reports: Hx Pneumonia Renal/ Medical History: Denies: Hx Peritoneal Dialysis GI Medical History: Reports: Hx Gastroesophageal Reflux Disease Past Surgical History: Reports: Hx Oral Surgery - Immunizations Immunizations up to date: Yes Hx Diphtheria, Pertussis, Tetanus Vaccination: Yes Physical Exam - Vital signs Vitals: Temp Pulse Resp BP Pulse Ox 98.6 F 86 22 H 151/90 H 98 12/25/19 12:08 12/25/19 12:08 12/25/19 12:08 12/25/19 12:08 12/25/19 12:08 Course - Vital Signs Vital signs: Temp Pulse Resp BP Pulse Ox 98.6 F 86 22 H 151/90 H 98 12/25/19 12:08 12/25/19 12:08 12/25/19 12:08 12/25/19 12:08 12/25/19 12:08
[2019-12-25 13:15] LABS: APPEARANCE,URINE SLIGHTLY-CLOUDY; BILIRUBIN,URINE NEGATIVE (NEGATIVE); COLOR,URINE DARK YELLOW; GLUCOSE, URINE 150 mg/dL (NEGATIVE); KETONES,URINE NEGATIVE (NEGATIVE); LEUKOCYTE ESTERASE,URINE NEGATIVE (NEGATIVE); NITRITE,URINE NEGATIVE (NEGATIVE); PROTEIN,URINE 30 mg/dL (NEGATIVE)
[2019-12-25 13:32] LABS: ALBUMIN 4.5 g/dL (3.5-5.0); ALKALINE PHOSPHATASE 89 U/L (38-126); ANION GAP 12 (5-19); ASPARTATE AMINO TRANSFERASE 36 U/L (17-59); BILIRUBIN,DIRECT 0.5 mg/dL (0.0-0.4); BILIRUBIN,TOTAL 0.9 mg/dL (0.2-1.3); BLOOD UREA NITROGEN 12 mg/dL (7-20); CALCIUM 9.3 mg/dL (8.4-10.2); CARBON DIOXIDE 21 mmol/L (22-30); CHLORIDE 103 mmol/L (98-107); GLUCOSE 242 mg/dL (75-110); POTASSIUM 4.8 mmol/L (3.6-5.0); TOTAL PROTEIN 7.5 g/dL (6.3-8.2)
--- NOTE | 2019-12-25 14:01 | RADIOLOGY REPORT (SQ) ---
EXAM DESCRIPTION: CT LUMBAR SPINE WITHOUT IMAGES COMPLETED DATE/TIME: 12/25/2019 12:11 pm REASON FOR STUDY: Increasing low back pain with stated fever COMPARISON: Lumbar spine radiograph 04/29/2019 TECHNIQUE: Axial images acquired through the lumbar spine without intravenous contrast. Images revi ewed with lung, soft tissue and bone windows. Reconstructed coronal and sagittal MPR images reviewed . All images stored on PACS. All CT scanners at this facility use dose modulation, iterative reconstruction, and/or weight based d osing when appropriate to reduce radiation dose to as low as reasonably achievable (ALARA). [facility]: Dose Right [facility]: CareDose [facility]: Dose Right [facility]: Teradose 4D [facility]: Inductly RADIATION DOSE: mGy. LIMITATIONS: None. FINDINGS: SEGMENTATION: Normal. No transitional anatomy. ALIGNMENT: Normal. VERTEBRAL BODIES: No fractures. No dislocation. No acute findings. Small marginal osteophytes at t he endplates at L4 and L5. DISCS: There is mild degenerative disc disease most prominent at L4-L5 with a posterior projecting br oad-based disc osteophyte complex at this level. There is acquired spinal canal stenosis secondary t o this disc osteophyte complex with spinal canal measuring about 4 mm at this level. There is mild d egenerative disc disease at L5-S1 with no significant disc bulge. Small broad-based posterior disc b ulge at L3-4 with mild acquired spinal canal stenosis spinal canal measuring about 6 mm at this level . . PEDICLES, TRANSVERSE PROCESSES: No fractures. No dislocation. No acute findings. FACETS, POSTERIOR ELEMENTS: No fractures. No dislocation. No spinal stenosis. HARDWARE: None in the spine. VISUALIZED RIBS: No fractures. SOFT TISSUES: No paraspinous mass or fluid collection. No hydronephrosis. No free fluid in the abdo men or pelvis. OTHER: No other significant finding. IMPRESSION: 1. Degenerative disc disease with moderate disc osteophyte complex at L4-L5 contribute to moderate ac quired spinal canal stenosis at this level. Clinical correlation for symptoms related to this level recommended. If clinically indicated, further evaluation with MRI of the lumbar spine may provide ad ditional information regarding nerve root compression. 2. No acute fracture, lytic or blastic bone lesion in the lumbar spine. TECHNICAL DOCUMENTATION: JOB ID: [id number] Quality ID # [id number]: Final reports with documentation of one or more dose reduction techniques (e.g., Au tomated exposure control, adjustment of the mA and/or kV according to patient size, use of iterative reconstruction technique) 2010 [employer]- All Rights Reserved Reading location - IP/workstation name: [email or web address]
[2019-12-25 15:07] LABS: ABSOLUTE BASOPHILS # (AUTO) 0.1 10^3/uL (0.0-0.2); ABSOLUTE EOSINOPHILS # (AUTO) 0.1 10^3/uL (0.0-0.6); ABSOLUTE LYMPHOCYTES (AUTO) 3.3 10^3/uL (0.5-4.7); ABSOLUTE MONOCYTES (AUTO) 0.5 10^3/uL (0.1-1.4); ABSOLUTE NEUT (AUTO) 8.2 10^3/uL (1.7-8.2); BASOPHILS % (AUTO) 1.2 % (0-2); EOSINOPHILS % (AUTO) 0.5 % (0-6); HEMATOCRIT 45.9 % (37.9-51.0); LYMPHOCYTES % (AUTO) 26.9 % (13-45); MEAN CORPUSCULAR HEMOGLOBIN 29.1 pg (27.0-33.4); MEAN CORPUSCULAR HGB CONC 34.8 g/dL (32.0-36.0); MEAN CORPUSCULAR VOLUME 84 fl (80-97); MONOCYTES % (AUTO) 4.4 % (3-13); PLATELET COUNT 301 10^3/uL (150-450); RED BLOOD COUNT 5.49 10^6/uL (4.35-5.55); RED CELL DISTRIBUTION WIDTH 12.9 % (11.5-14.0); TOTAL CELLS COUNTED % (AUTO) 100 %; WHITE BLOOD COUNT 12.3 10^3/uL (4.0-10.5)
[2019-12-25] MEDS ORDERED: IBUPROFEN 600 MG TABLET PO ONE (16:02)
[2019-12-25] MEDS ORDERED: HYDROCODONE/ACETAMINOPHEN 5-325 MG TABLET PO ONE (16:33)
--- NOTE | 2019-12-25 16:43 | ER Document Report ---
ED General Pain - General Chief Complaint: Low Back Pain Stated Complaint: LOW BACK PAIN Time Seen by Provider: 12/25/19 12:31 Mode of Arrival: Wheelchair TRAVEL OUTSIDE OF THE [place] IN LAST 30 DAYS: No - HPI Notes: Patient is a 39-year-old male with a past medical history of diabetes and back pain who presents with back pain. Patient states the pain is chronic for the past 4 years but worsened within the past several days. He states that it is at his left buttock area and radiates down his leg. Has been taking Motrin. He took Flexeril yesterday without relief but has no more Flexeril left. [facility] has not been to physical therapy or neurosurgery. Denies injury before the back pain starting. He denies any saddle paresthesia. No measured fever. Patient is not an IV drug user. He denies any incontinence. He denies any testicular or penile pain. No abdominal pain. No nausea or vomiting. - Related Data Allergies/Adverse Reactions: iodine [Iodine] Allergy (Intermediate, Verified 08/02/19 13:49) Hives Home Medications: Metoprolol Past Medical History - General Information source: Patient - Social History Smoking Status: Current Every Day Smoker Frequency of alcohol use: Occasional Drug Abuse: Marijuana Family History: Reviewed & Not Pertinent Patient has homicidal ideation: No - Past Medical History Cardiac Medical History: Reports: Hx Hypertension Pulmonary Medical History: Reports: Hx Pneumonia Renal/ Medical History: Denies: Hx Peritoneal Dialysis GI Medical History: Reports: Hx Gastroesophageal Reflux Disease Past Surgical History: Reports: Hx Oral Surgery - Immunizations Immunizations up to date: Yes Hx Diphtheria, Pertussis, Tetanus Vaccination: Yes Review of Systems - Review of Systems Notes: CONSTITUTIONAL: No fever, fatigue or weight loss. SKIN: No rash. HENT: No congestion, ear pain, or sore throat. EYES: No recent vision problems or eye pain. ENDOCRINE: No polyuria or polydipsia. CARDIOVASCULAR: No chest pain or edema. RESPIRATORY: No cough, shortness of breath, congestion, or wheezing. GASTROINTESTINAL: No abdominal pain, nausea, vomiting, bloody stools or diarrhea. GENITOURINARY: No dysuria. MUSCULOSKELETAL: No joint pain or swelling. Positive for left buttock pain radiating down his leg. LYMPHATIC: No swollen glands. NEUROLOGIC: No seizures. No headache, focal weakness or sensory changes. HEMATOLOGIC: No unusual bruising or bleeding. PSYCHIATRIC: No depression or anxiety. Physical Exam - Vital signs Vitals: Temp Pulse Resp BP Pulse Ox 98.6 F 86 22 H 151/90 H 98 12/25/19 12:08 12/25/19 12:08 12/25/19 12:08 12/25/19 12:08 12/25/19 12:08 - Notes Notes: VITAL SIGNS: Within normal limits. GENERAL: Appears uncomfortable due to pain HEAD: Normal with no signs of head trauma. EYES: EOMI, conjunctiva normal, no discharge. EARS: Hearing grossly intact. NOSE: Normal. NECK: Normal range of motion, no tenderness, supple, no lymphadenopathy, No adenopathy, no JVD. CHEST: Clear breath sounds bilaterally. No wheezes, rales, or rhonchi. CARDIAC: Regular rate and rhythm. S1 and S2, without murmurs, gallops, or rubs. VASCULAR: No Edema. ABDOMEN: Normal and soft MUSCULOSKELETAL: No discomfort to palpation of lumbar thoracic spine. Discomfort to palpation of left piriformis with reproducible pain down his left leg. Strength is 5 out of 5 in lower extremities bilaterally. Sensation is intact. No saddle paresthesia. NEUROLOGICAL: Alert and oriented x 3. No focal sensory or strength deficits. Speech normal. Follows commands appropriately. PSYCHIATRIC: Normal Affect, judgement and mood. SKIN: Normal appearance with no rashes or lesions. Course - Re-evaluation Re-evalutation: 12/25/19 17:46 Patient states this is worsening of his chronic back pain. He does not have a fever and does not have a history of IV drug use so I do not think this is an epidural abscess. Patient has pain at palpation of the piriformis. Likely, this is sciatica. I did inform him that he has a stenosis at the L4-L5 region which correlates with his left leg pain radiation. Patient will be discharged with a short prescription of hydrocodone and Flexeril as he has already tried [id number] medication without relief. He states that he does have lidocaine patches at home. I discussed warm heat to the area. Patient was told that he needs to follow-up with his PCP as they may need to arrange physical therapy or neurosurgery evaluation as he has had continued pain for many years. Patient was given strict return precautions including incontinence, saddle paresthesia, fever, worsening pain, weakness, numbness and he verbalized understanding. - Vital Signs Vital signs: Temp Pulse Resp BP Pulse Ox 98.6 F 86 22 H 151/90 H 98 12/25/19 12:08 12/25/19 12:08 12/25/19 12:08 12/25/19 12:08 12/25/19 12:08 - Laboratory Result Diagrams: 12/25/19 14:58 12/25/19 12:40 Laboratory results interpreted by me: 12/25/19 12/25/19 12/25/19 12:40 12:40 14:58 WBC 12.3 H Sodium 135.9 L Carbon Dioxide 21 L Glucose 242 H Direct Bilirubin 0.5 H ALT 73 H Urine Protein 30 H Urine Glucose (UA) 150 H Urine Urobilinogen 2.0 H Discharge - Discharge Clinical Impression: Low back pain Qualifiers: Chronicity: acute Back pain laterality: left Sciatica presence: with sciatica Sciatica laterality: sciatica of left side Qualified Code(s): M54.42 - Lumbago with sciatica, left side Sciatica Qualifiers: Laterality: left Qualified Code(s): M54.32 - Sciatica, left side Spinal stenosis Qualifiers: Spinal region: lumbar Neurogenic claudication status: unspecified Qualified Co de(s): M48.061 - Spinal stenosis, lumbar region without neurogenic claudication Condition: Stable Disposition: HOME, SELF-CARE Instructions: Low Back Pain ([facility]), Oral Narcotic Medication ([facility]), Sciatica ([facility]) Additional Instructions: Please follow-up with the family doctor provided. He may need to refer you to neurosurgery or physical therapy. Please return to the ER for any fevers, worsening back pain, numbness, incontinence. Prescriptions: Cyclobenzaprine HCl [Flexeril 10 mg Tablet] 10 mg PO TID PRN 5 Days #12 tablet PRN Reason: Hydrocodone/Acetaminophen [[place] 5-325 mg Tablet] 1 tab PO Q6H PRN 5 Days #12 tablet PRN Reason:
== END 2019-12-25 17:22 | disposition home or self-care (01) ==
LOC: ER 11:59
DX: M51.16 Intervertebral disc disorders with radiculopathy, lumbar region (principal); M48.061 Spinal stenosis, lumbar region without neurogenic claudication; E11.9 Type 2 diabetes mellitus without complications; F17.200 Nicotine dependence, unspecified, uncomplicated; F12.10 Cannabis abuse, uncomplicated; I10 Essential (primary) hypertension; Z79.899 Other long term (current) drug therapy
CPT/HCPCS: 36415; 72131; 80053; 81001; 85025; 99285